=== PATIENT | male | born 1960 | race Caucasian/White ===

== ENCOUNTER 2016-11-04 23:25 | Emergency (ER) | payer OTHER ==
[2016-11-04] MEDS ORDERED: PRINIVIL20 M1 PO (23:36)
[2016-11-05] MEDS ORDERED: ERYTHROMYCIN5 MG/GM OP (00:54)
[2016-11-05 01:32] VITALS: BP 180/99
== END 2016-11-05 01:00 | disposition home or self-care (01) ==
LOC: ED 23:25
DX: S05.01XA Injury of conjunctiva and corneal abrasion without foreign body, right eye, initial encounter (principal); Y93.9 Activity, unspecified; Y99.0 Civilian activity done for income or pay

== ENCOUNTER → 2017-04-29 | Outpatient (CLI) | payer BC ==
[~2017-04-29] MED LIST: ERYTHROMYCIN5 MG/GM OP; PRINIVIL20 M1 PO
== END ==
LOC: RAD 04-27 13:00
DX: R06.09 Other forms of dyspnea (principal)

== ENCOUNTER → 2017-05-01 | Outpatient (CLI) | payer BC | LOC: CARDREHAB 12:17 | DX: R06.09 Other forms of dyspnea (principal); I10 Essential (primary) hypertension; E78.5 Hyperlipidemia, unspecified; E78.00 Pure hypercholesterolemia, unspecified ==

== ENCOUNTER 2017-08-18 13:53 | Emergency (ER) | payer OTHER ==
[~2017-08-18] VITALS: Ht 188 cm; Wt 122.7 kg
[2017-08-18 13:56] VITALS: BP 146/99
[2017-08-18] MEDS ORDERED: SIMVASTATIN5 M1 PO (13:59)
== END 2017-08-18 15:31 | disposition home or self-care (01) ==
LOC: ED 13:53
DX: S60.410A Abrasion of right index finger, initial encounter (principal); S60.412A Abrasion of right middle finger, initial encounter; S60.414A Abrasion of right ring finger, initial encounter; Z23 Encounter for immunization; S60.411A Abrasion of left index finger, initial encounter; S60.413A Abrasion of left middle finger, initial encounter; S60.417A Abrasion of left little finger, initial encounter; S60.415A Abrasion of left ring finger, initial encounter; I10 Essential (primary) hypertension; W49.9XXA Exposure to other inanimate mechanical forces, initial encounter
CPT/HCPCS: 90715

== ENCOUNTER → 2018-12-17 | Outpatient (CLI) | payer BC ==
[~2018-12-17] MED LIST changes: +SIMVASTATIN5 M1 PO
== END ==
LOC: RAD 15:23
DX: R73.9 Hyperglycemia, unspecified (principal); R35.1 Nocturia

== ENCOUNTER 2019-03-23 16:00 | Outpatient (RCR) | payer BC | END 2019-03-24 | disposition still patient (30) | LOC: PT | DX: M19.90 Unspecified osteoarthritis, unspecified site (principal); K21.9 Gastro-esophageal reflux disease without esophagitis ==

== ENCOUNTER → 2019-07-20 | Outpatient (CLI) | payer BC | LOC: RAD 07:45 | DX: M48.061 Spinal stenosis, lumbar region without neurogenic claudication (principal); M51.36 Other intervertebral disc degeneration, lumbar region; K21.9 Gastro-esophageal reflux disease without esophagitis; M79.604 Pain in right leg; R20.0 Anesthesia of skin ==

== ENCOUNTER → 2019-09-30 | Outpatient (CLI) | payer BC ==
[2019-09-30 09:46] LABS: EOS # 0.3 (0.04-0.40); EOS % 4.3 % (0.0-4.0); HEMATOCRIT 41.7 % (42.0-52.0); HEMOGLOBIN 14.1 g/dL (13.5-18.0); LYMPH# 1.7 (1.50-4.00); MEAN CELL VOLUME 92 fl (78-100); MEAN CORPUSCULAR HEMOGLOBIN 31 pg (27-31); MEAN CORPUSCULAR HGB CONC 34 g/dL (33-37); MEAN PLATELET VOLUME 9.7 fl (7.4-10.4); MONO # 0.8 (0.20-0.80); NEU # 4.4 (1.40-6.50); PLATELET COUNT 344 K/mm3 (130-400); RED BLOOD COUNT 4.54 M/mm3 (4.20-5.60); RED CELL DISTRIBUTION WIDTH 13.3 % (11.5-14.5); WHITE BLOOD COUNT 7.3 K/mm3 (4.8-10.8)
[2019-09-30 10:04] LABS: ALBUMIN 4.2 g/dL (3.5-5.0); POTASSIUM 4.6 mmol/L (3.5-5.1)
[2019-09-30 10:06] LABS: CALCIUM 9.7 mg/dL (8.3-10.5)
[2019-09-30 10:07] LABS: PARTIAL THROMBOPLASTIN TIME 25.2 SECONDS (21.0-32.0); PROTHROMBIN TIME 9.8 SECONDS (9.0-12.0); TOTAL PROTEIN 7.3 g/dL (6.4-8.3)
[2019-09-30 10:09] LABS: TOTAL BILIRUBIN 0.5 mg/dL (0.2-1.2)
[2019-09-30 10:11] LABS: URINE APPEARANCE CLEAR; URINE BILIRUBIN NEGATIVE (NEGATIVE); URINE BLOOD NEGATIVE (NEGATIVE); URINE COLOR YELLOW; URINE GLUCOSE NEGATIVE (NEGATIVE); URINE KETONE NEGATIVE (NEGATIVE); URINE LEUKOCYTE ESTERASE NEGATIVE (NEGATIVE); URINE MUCUS PRESENT (NOT PRESENT); URINE NITRATE NEGATIVE (NEGATIVE); URINE PROTEIN(semi-quant) TRACE mg/dL (NEGATIVE); URINE UROBILINOGEN NORMAL (NORMAL)
== END ==
LOC: AMSURD 09:33
PROVIDERS: Family Medicine
DX: Z01.818 Encounter for other preprocedural examination (principal); I10 Essential (primary) hypertension; M54.5 Low back pain; G89.29 Other chronic pain; R73.03 Prediabetes

== ENCOUNTER → 2020-10-29 | Outpatient (REF) | LOC: LAB 09:21 → EDSTATUS 09:22 | DX: I10 Essential (primary) hypertension (principal); E78.00 Pure hypercholesterolemia, unspecified; R73.03 Prediabetes ==

== ENCOUNTER → 2020-12-20 | Outpatient (CLI) | payer BC ==
[~2020-12-20] MED LIST changes: +FAMOTIDINE20 MG PO; +HCTZ 25MG25 MG PO; +MOBIC15 M1 PO; +NORVASC 10MG10 MG PO; +PRAVASTATIN SOD80 MG PO; +TRAMADOL 50 MG TAB PO; +TRIAMCINOLONE A15 G3 TP; +VIAGRA50 M1 PO; +ZANAFLEX CAPSULE2 MG PO
== END ==
LOC: RAD 11:29
DX: M77.31 Calcaneal spur, right foot (principal); Z87.81 Personal history of (healed) traumatic fracture

== ENCOUNTER 2021-01-14 10:30 | Outpatient (RCR) | payer BC ==
[~2021-01-14 10:30] MED LIST changes: -FAMOTIDINE20 MG PO; -HCTZ 25MG25 MG PO; -MOBIC15 M1 PO; -NORVASC 10MG10 MG PO; -PRAVASTATIN SOD80 MG PO; -TRAMADOL 50 MG TAB PO; -TRIAMCINOLONE A15 G3 TP; -VIAGRA50 M1 PO; -ZANAFLEX CAPSULE2 MG PO
[2021-01-23] MEDS ORDERED: FAMOTIDINE20 MG PO (15:44)
[2021-01-23] MEDS ORDERED: NORVASC 10MG10 MG PO (15:44)
[2021-01-23] MEDS ORDERED: MOBIC15 M1 PO (15:45)
[2021-01-23] MEDS ORDERED: HCTZ 25MG25 MG PO (15:45)
[2021-01-23] MEDS ORDERED: PRAVASTATIN SOD80 MG PO (15:46)
[2021-01-23] MEDS ORDERED: VIAGRA50 M1 PO (15:46)
[2021-01-23] MEDS ORDERED: ZANAFLEX CAPSULE2 MG PO (15:47)
[2021-01-23] MEDS ORDERED: TRIAMCINOLONE A15 G3 TP (15:48)
[2021-01-23] MEDS ORDERED: TRAMADOL 50 MG TAB PO (15:48)
== END 2021-04-01 | disposition home or self-care (01) ==
LOC: PT
DX: M25.571 Pain in right ankle and joints of right foot (principal)

== ENCOUNTER 2021-01-23 14:28 | Emergency (ER) | payer BC ==
[2021-01-23 15:11] LABS: EOS # 0.2 (0.04-0.40); HEMATOCRIT 40.9 % (42.0-52.0); HEMOGLOBIN 14.3 g/dL (13.5-18.0); LYMPH# 1.9 (1.50-4.00); MEAN CELL VOLUME 90 fl (78-100); MEAN CORPUSCULAR HEMOGLOBIN 32 pg (27-31); MEAN CORPUSCULAR HGB CONC 35 g/dL (33-37); MEAN PLATELET VOLUME 9.6 fl (7.4-10.4); MONO # 0.6 (0.20-0.80); NEU # 4.6 (1.40-6.50); PLATELET COUNT 326 K/mm3 (130-400); RED BLOOD COUNT 4.54 M/mm3 (4.20-5.60); RED CELL DISTRIBUTION WIDTH 13.2 % (11.5-14.5); WHITE BLOOD COUNT 7.4 K/mm3 (4.8-10.8)
[2021-01-23 15:27] LABS: ALBUMIN 4.2 g/dL (3.5-5.0); SODIUM 133 mmol/L (136-145)
[2021-01-23 15:28] LABS: CALCIUM 9.6 mg/dL (8.3-10.5)
[2021-01-23 15:29] LABS: GLUCOSE 106 mg/dL (75-110); TOTAL PROTEIN 7.4 g/dL (6.4-8.3)
[2021-01-23 15:30] LABS: CARBON DIOXIDE 24 mmol/L (22-29)
[2021-01-23 15:31] LABS: TOTAL BILIRUBIN 0.6 mg/dL (0.2-1.2)
[2021-01-23 15:35] LABS: AST-SGOT 29 U/L (5-34)
[2021-01-23 15:36] LABS: ALT/SGPT 44 U/L (0-55)
[2021-01-23] MEDS ORDERED: FAMOTIDINE20 MG PO (15:44)
[2021-01-23] MEDS ORDERED: NORVASC 10MG10 MG PO (15:44)
[2021-01-23] MEDS ORDERED: HCTZ 25MG25 MG PO (15:45)
[2021-01-23] MEDS ORDERED: MOBIC15 M1 PO (15:45)
[2021-01-23] MEDS ORDERED: PRAVASTATIN SOD80 MG PO (15:46)
[2021-01-23] MEDS ORDERED: VIAGRA50 M1 PO (15:46)
[2021-01-23] MEDS ORDERED: ZANAFLEX CAPSULE2 MG PO (15:47)
[2021-01-23 15:48] LABS: TROPONIN-I < 0.03 ng/mL (<0.030)
[2021-01-23 15:48] LABS: URINE APPEARANCE CLEAR; URINE BILIRUBIN NEGATIVE (NEGATIVE); URINE BLOOD NEGATIVE (NEGATIVE); URINE COLOR YELLOW; URINE GLUCOSE NEGATIVE (NEGATIVE); URINE KETONE NEGATIVE (NEGATIVE); URINE LEUKOCYTE ESTERASE NEGATIVE (NEGATIVE); URINE NITRATE NEGATIVE (NEGATIVE); URINE PROTEIN(semi-quant) TRACE mg/dL (NEGATIVE); URINE UROBILINOGEN NORMAL (NORMAL); URINE WBC 0-1 /hpf (0-3)
[2021-01-23] MEDS ORDERED: TRAMADOL 50 MG TAB PO (15:48)
[2021-01-23] MEDS ORDERED: TRIAMCINOLONE A15 G3 TP (15:48)
[2021-01-23 16:28] VITALS: BP 152/91
== END 2021-01-23 16:27 | disposition home or self-care (01) ==
LOC: ED 14:28
PROVIDERS: Physician Assistant
DX: I16.0 Hypertensive urgency (principal); E78.5 Hyperlipidemia, unspecified; F17.290 Nicotine dependence, other tobacco product, uncomplicated; Z79.899 Other long term (current) drug therapy

== ENCOUNTER → 2022-01-13 | Outpatient (CLI) | payer BC ==
[~2022-01-13] MED LIST changes: +FAMOTIDINE20 MG PO; +HCTZ 25MG25 MG PO; +MOBIC15 M1 PO; +NORVASC 10MG10 MG PO; +PRAVASTATIN SOD80 MG PO; +TRAMADOL 50 MG TAB PO; +TRIAMCINOLONE A15 G3 TP; +VIAGRA50 M1 PO; +ZANAFLEX CAPSULE2 MG PO
[2022-01-13 10:14] LABS: POTASSIUM 4.2 mmol/L (3.5-5.1)
[2022-01-13 10:16] LABS: CALCIUM 10.5 mg/dL (8.3-10.5)
[2022-01-13 10:17] LABS: TOTAL PROTEIN 7.3 g/dL (6.2-8.1)
[2022-01-13 10:19] LABS: TOTAL BILIRUBIN 0.3 mg/dL (0.2-1.2)
== END ==
LOC: LAB 09:56
PROVIDERS: Family Medicine
DX: Z12.5 Encounter for screening for malignant neoplasm of prostate (principal); I10 Essential (primary) hypertension; E78.00 Pure hypercholesterolemia, unspecified; R73.03 Prediabetes

== ENCOUNTER → 2024-06-03 | Outpatient (CLI) | payer SELFPAY ==
[2024-06-03 15:25] LABS: CALCIUM 9.9 mg/dL (8.3-10.5)
== END ==
LOC: LAB 15:01
PROVIDERS: Family Medicine
DX: Z12.5 Encounter for screening for malignant neoplasm of prostate (principal); I10 Essential (primary) hypertension; E78.2 Mixed hyperlipidemia